=== PATIENT | female | born 2000 | race Two or more races ===

== ENCOUNTER 2024-11-20 20:31 | Inpatient (IN) | payer MEDICAID, SELFPAY ==
[2024-11-20 20:32] VITALS: BMI 20.3
[2024-11-20 21:45] VITALS: BP 94/56; PULSE 147; RESP 20; TEMP 37.8; O2SAT 97
--- NOTE | 2024-11-20 22:43 | PD.EDRME ---
Rapid Medical Screening Exam RME Arrival date/time: 11/20/24 20:31 Chief Complaint: Fever Time Seen by Provider: 11/20/24 21:13 Vital signs: Vital Signs Temperature 100.1 F 11/20/24 21:45 Pulse Rate 147 H 11/20/24 21:45 Respiratory Rate 20 11/20/24 21:45 Blood Pressure 94/56 L 11/20/24 21:45 Pulse Oximetry (%) 97 11/20/24 21:45 Oxygen Delivery Method Room Air 11/20/24 21:45 Vital signs reviewed by provider: Yes RME Narrative: 23-year-old female brought in by mom for evaluation of right flank pain x3 days. Patient's mom endorses persistent fever at home with max of 105F. Patient endorses nausea and vomiting and states she is unable to tolerate p.o. fluids. Denies dysuria, hematuria, diarrhea.
--- NOTE | 2024-11-20 22:44 | XR_ITS ---
Examination: CT abdomen and pelvis without contrast. Coronal 3-D reconstructions. Sagittal 2-D reconstructions. Date and time of exam:November 21, 2024 0134 hrs. Indications: Fever and flank pain beginning on the right side 4 days ago CTDI: vol (mGy): 7.73 DLP: (mGycm): 371 Technique: Axial images of the abdomen have been obtained, 3 mm slice thickness Intravenous contrast material has not been administered. Low dose protocols were performed. One or more of the following dose reduction techniques were used; automated exposure control, adjustment of the mA and/or KV according to patient size, use of iterative reconstruction technique. Findings: No focal liver or splenic lesions No pancreatic mass Edematous appearing right kidney on this noncontrast study The distal appendix is fluid-filled with mild wall thickening, the appearance should be clinically correlated No bowel obstruction Anteverted uterus No diverticulitis Urinary bladder intact Osseous structures intact Impression: Edematous right kidney consistent with right pyelonephritis The distal appendix is fluid-filled with mild wall thickening measuring 6 mm in thickness, without definite inflammatory change, the appearance should be clinically correlated
[2024-11-20] MEDS: SODIUM CHLORIDE 0.9% 500 ML 500 ML 999 ML IV (23:15)
[2024-11-20 23:36] LABS: Basophils # (Auto) 0.1 Thou/mm3 (0.0-0.2); Basophils % (Auto) 0 % (0-2.5); Eosinophils % (Auto) 0 % (0-10); Hematocrit 35.3 % (36.0-46.0); Hemoglobin 12.3 g/dL (12.0-16.0); Immature Granulocytes % (Auto) 2 % (0-0); Immature Granulocytes Auto 0.45 Thou/mm3 (0.00-0.00); Lymphocytes % (Auto) 3 % (10-50); Mean Corpuscular HGB Conc 34.8 g/dl (31.0-37.0); Mean Corpuscular Hemoglobin 29.2 pg (25.0-35.0); Mean Corpuscular Volume 84 fL (80-100); Monocytes # (Auto) 2.1 Thou/mm3 (0.0-0.8); Monocytes % (Auto) 7 % (0-12); Neutrophils # (Auto) 24.8 Thou/mm3 (1.8-7.7); Neutrophils % (Auto) 88 % (37-80); Nucleated Red Blood Cell % 0 /100 WBC (0); Platelet Count 176 Thou/mm3 (140-440); RDW Standard Deviation 38.1 fL (36.4-46.3); Red Blood Count 4.21 Miln/mm3 (4.00-5.20)
[2024-11-20 23:37] LABS: White Blood Count 28.4 Thou/mm3 (3.6-11.0)
[2024-11-20 23:58] LABS: Alanine Aminotransferase 20 U/L (10-49); Albumin, Serum 4.3 gm/dL (3.5-5.0); Albumin/Globulin Ratio 1.5 (1.2-2.2); Alkaline Phosphatase 74 U/L (46-116); Anion Gap 11 (7-16); Aspartate Amino Transferase 17 U/L (0-34); BUN/Creatinine Ratio 13 Ratio (12-20); Bilirubin,Total 0.9 mg/dL (0.3-1.2); Blood Urea Nitrogen 9 mg/dL (9-23); Calcium 9.3 mg/dL (8.3-10.6); Calcium (Corrected) 9.3 mg/dL (8.5-10.1); Carbon Dioxide 24.4 mMol/L (20.0-31.0); Chloride 103 mMol/L (98-107); Creatinine (Component) 0.7 mg/dL (0.6-1.3); Estimated Creatinine Clearance 125.6 mL/min (>60); Globulin 2.9 gm/dL (2.3-3.5); Glucose 108 mg/dL (74-106); Osmolality,Calculated 275 (275-295); Potassium 3.7 mMol/L (3.4-5.1); Sodium 138 mMol/L (136-145); Total Protein 7.2 gm/dL (5.7-8.2); eGFR > 60 See Note
[2024-11-21] VITALS (18 sets, daily range): BP systolic 104–128; BP diastolic 50–90; PULSE 88–132; RESP 16–98; TEMP 36.7–39.6; O2SAT 96–100; BMI 20.3
[2024-11-21 00:48] LABS: Collection Type, Urine Clean Catch
[2024-11-21 00:52] LABS: HCG Qualitative,Urine Negative
[2024-11-21 00:56] LABS: Bilirubin,Urine Negative (Negative); Blood,Urine 1+ (Negative); Clarity,Urine Turbid (Clear/Hazy); Color,Urine Yellow (Lt Yel-Yel); Glucose, Urine Negative (Negative); Ketones,Urine 3+ (Negative); Leukocyte Esterase,Urine Positive (Negative); Nitrite,Urine Positive (Negative); Protein,Urine 1+ (Neg - Trace); RBC,Urine 7 /hpf (0-3); Specific Gravity,Urine 1.021 (1.001-1.035); Squamous Epithelial Cell,Urine 1 /hpf (0-5); Urobilinogen,Urine Negative mg/dL (0.0-1.0); WBC,Urine 63 /hpf (0-5)
[2024-11-21 00:58] LABS: Culture Indicated,Urine Yes
--- NOTE | 2024-11-21 03:06 | PRELIM_ITS ---
CT scan of the abdomen and pelvis without intravenous contrast (axial sections with sagittal and coronal reformats) November 21, 2024 at 0134 hours Clinical History: Right flank pain and fever. Comparison: None. Findings: The lung bases are clear. The liver, pancreas, spleen, and adrenals are unremarkable on this noncontrast study. Gallbladder is large. No evidence of acute cholecystitis. Right perinephric fat stranding. No hydronephrosis. No kidney or ureteral stones. No evidence of bowel obstruction. Prominent distal appendix measuring up to 0.7 cm without peripheral fat stranding, no perforation, no collections. There is no mesenteric or retroperitoneal adenopathy. The urinary bladder is nondistended, limited evaluation. There is no free fluid or free air. The osseous structures are unremarkable. The uterus and ovaries are within normal limits. Impression: Probable right pyelonephritis. Prominent distal appendix, early acute appendicitis cannot be excluded. Discussion Details: Results verbally communicated to : Dr Lombardo at 02:51 AM 11/21/2024 Report Electronically Signed By: Jhonny Lang 11/21/2024 3:06:44 AM [EST]
[2024-11-21] MEDS: ONDANSETRON INJ 2 MG/ML INJ 2 ML 4 MG IV (03:21)
[2024-11-21] MEDS: PIPER/TAZO INJ 3.375 GM in SODIUM CHLORIDE 0.9% (Popper) 50 ML IV (03:22)
[2024-11-21 03:26] LABS: Lactate (Lactic Acid) 2.1 mMol/L (0.4-2.0)
--- NOTE | 2024-11-21 03:26 | PD.EDFEVER ---
ED Fever RME/HPI General Chief Complaint: Fever Stated Complaint: FEVER Time Seen by Provider: 11/20/24 21:13 Source: patient and family Arrival date/time: 11/20/24 20:31 Mode of arrival: ambulatory Limitations: no limitations RME / HPI RME / HPI Narrative: Dr. Gaytan?s Main ED Evaluation: 23-year-old female presents with right flank pain for 3 days, brought in by her mother due to worsening symptoms. Her mother reports persistent fever at home, peaking at 105?F. The patient also endorses nausea and vomiting, with an inability to tolerate oral fluids, raising mom's concern for dehydration. She denies dysuria, hematuria, or diarrhea. No recent sick contacts or travel history reported. Related Data Previous Rx's ?Medication ?Instructions ?Recorded Sulfamethoxazole/Trimethoprim DS * 1 tab PO BID #20 tabs 06/10/17 (BACTRIM DS *) metoclopramide HCl 10 mg tablet 10 mg PO Q6H PRN nausea and 08/04/22 (Reglan) vomiting #20 tabs Allergies Allergy/AdvReac Type Severity Reaction Status Date / Time No Known Allergies Allergy Verified 08/04/22 20:23 Review of Systems Review of Systems Systems Reviewed: All systems reviewed, normal except as documented Past Medical History Past Medical History NEUROLOGIC: Positive Seizures (Febrile Sx last one at age6 yrs old) CARDIAC: Negative Congestive Heart Failure RESPIRATORY: Negative Chronic Obstructive Pulmonary Disease (COPD) GENITOURINARY: Negative Renal Disease ENDOCRINE: Negative Diabetes Mellitus Type 1 or Diabetes Mellitus Type 2 Social History SMOKING STATUS: Never smoker Physical Exam General Limitations: no limitations General appearance: alert and in no apparent distress Head Head exam: atraumatic Eye Eye exam: Present normal appearance, PERRL and EOMI ENT ENT exam: Present normal exam, normal oropharynx and mucous membranes moist Neck Neck exam: Present normal inspection, full ROM and trachea midline Chest Chest inspection: Present normal inspection and symmetric chest wall rise Respiratory Respiratory exam: Present normal lung sounds bilaterally Cardiovascular Cardiovascular exam: Present regular rate, normal rhythm and normal heart sounds Abdominal Exam Abdominal exam: Present soft and normal bowel sounds; Absent distention, tenderness, guarding, Rovsing's sign or tenderness at McBurney's Point Abdominal tenderness: Absent RLQ Extremities Exam Extremities exam: Present normal inspection and full ROM Back Exam Back exam: Present normal inspection and full ROM Neurological Exam Neurological exam: Present alert, oriented X3 and CN II-XII intact Psychiatric Psychiatric exam: Present normal affect and normal mood Skin Skin exam: Present warm, dry, intact and normal color ED Exam General Limitations: Present no limitations General appearance: Present alert and in no apparent distress Head Head exam: Present atraumatic Eye Eye exam: Present normal appearance, PERRL and EOMI ENT ENT exam: Present normal exam, normal oropharynx and mucous membranes moist Neck Neck exam: Present normal inspection, full ROM and trachea midline Chest Chest inspection: Present normal inspection and symmetric chest wall rise Respiratory Respiratory exam: Present normal lung sounds bilaterally Cardiovascular Cardiovascular exam: Present regular rate, normal rhythm and normal heart sounds Abdominal Exam Abdominal exam: Present soft and normal bowel sounds; Absent distention, tenderness, guarding, Rovsing's sign or tenderness at McBurney's Point Abdominal tenderness: Absent RLQ Extremities Exam Extremities exam: Present normal inspection and full ROM Back Exam Back exam: Present normal inspection and full ROM Neurological Exam Neurological exam: Present alert, oriented X3 and CN II-XII intact Psychiatric Psychiatric exam: Present normal affect and normal mood Skin Skin exam: Present warm, dry, intact and normal color Course Course Course Narrative: 0245 Sepsis alert initiated. Orders made at this time are congruent with ED Adult Sepsis Order List. Re-evaluation is to be completed. 0315 Sepsis reassessment performed consisting of lab review, vitals, physical exam including auscultation of heart, lungs, and visual evaluation of capillary refills, mucosal membranes and extremities. Quality Measures Current suspected stage: sepsis Possible source: genitourinary Blood cultures ordered: yes Antibiotic ordered: Yes Pertinent labs: 11/21/24 03:10 Lactic Acid 2.1 H mMol/L (0.4-2.0) Procalcitonin 3.99 H ng/ml (0.0-0.49) sepsis and none Orders Category Date Time Status Continuous Pulse Oximetry STAT Care 11/21/24 03:03 Completed EKG (ED ONLY) *Do not use* NOW Care 11/21/24 03:03 Completed In and Out Catheter X1PRN Care 11/21/24 03:03 Completed Insert IV NOW Care 11/20/24 22:44 Active NPO STAT Care 11/21/24 03:03 Active Strict Intake and Output Routine Care 11/21/24 03:[address] abdomen pelvis wo con Stat Exams 11/20/24 22:44 Taken EKG (ED Only) Stat Exams 11/21/24 03:03 Ordered XR chest 1V portable Stat Exams 11/21/24 03:50 Taken B-Type Natriuretic Peptide Stat Lab 11/21/24 03:10 Completed Blood Culture (Lab) Stat Lab 11/21/24 03:10 Received CBC Stat Lab 11/20/24 23:09 Completed CMP [Comprehensive Metabolic Panel] Stat Lab 11/20/24 23:09 Completed Drug Screen,Urine Stat Lab 11/21/24 00:37 Completed HCG Qualitative,Urine Stat Lab 11/21/24 00:37 Completed LDH (Lactate Dehydrogenase) Stat Lab 11/21/24 03:10 Completed Lactate (Lactic Acid) Stat Lab 11/21/24 03:10 Results Lipase Stat Lab 11/21/24 03:10 Completed Magnesium Stat Lab 11/21/24 03:10 Completed Partial Thromboplastin Time Stat Lab 11/21/24 03:10 Completed Path Review Blood Smear Stat Lab 11/20/24 23:09 Completed Phosphorous Stat Lab 11/21/24 03:10 Completed Procalcitonin Stat Lab 11/21/24 03:10 Completed Prothrombin Time with INR Stat Lab 11/21/24 03:10 Completed UA, C/S IF [Urinalysis, C/S if Indicated] Stat Lab 11/21/24 00:37 Completed Urinalysis Stat Lab 11/21/24 03:03 Ordered Urine Culture Stat Lab 11/21/24 00:37 Received Urine Culture Stat Lab 11/21/24 03:03 Ordered Acetaminophen Ivpb [Ofirmev Inj] Med 11/21/24 03:30 Discontinued 1,000 mg in 100 ml IV X1 Doxycycline Inj [Vibramycin Inj] 100 mg Med 11/21/24 03:29 Discontinued Sodium Chloride 0.9% (Pop) [NS 0.9% mini bag] 100 ml IV X1 Ketorolac Inj [Toradol Inj] Med 11/21/24 03:30 Discontinued 30 mg IVP X1 ONE Ondansetron Inj [Zofran Inj] Med 11/21/24 02:29 Discontinued 4 mg IV X1 ONE Piper/Tazo Inj [Zosyn Inj] 3.375 gm Med 11/21/24 03:15 Discontinued SODIUM CHLORIDE 0.9% (Popper) [Ns 0.9% (P)] 50 ml IV X1 Sodium Chloride 0.9% 1000 ml [Ns] 1,000 ml Med 11/21/24 03:50 Discontinued IV 999 mls/hr Sodium Chloride 0.9% 500 ml [Ns] 500 ml Med 11/20/24 22:44 Discontinued IV 999 mls/hr Sodium Chloride 0.9% 500 ml [Ns] 500 ml Med 11/21/24 03:50 Discontinued IV 999 mls/hr Oxygen Delivery NOW RT 11/21/24 03:03 Active Vital Signs Vital signs: Vital Signs Temperature 100.1 F 11/20/24 21:45 Pulse Rate 147 H 11/20/24 21:45 Respiratory Rate 20 11/20/24 21:45 Blood Pressure 94/56 L 11/20/24 21:45 Pulse Oximetry (%) 97 11/20/24 21:45 Oxygen Delivery Method Room Air 11/20/24 21:45 Procedures -ED Procedure Comment EKG taken at 0320: Sinus tachycardia at 117 bpm, normal axis, no ectopy, right bundle branch block (RBBB), with no evidence of acute ischemia, according to my interpretation. Fever MDM Narrative MDM Narrative:: Scribe Attestation: I, Frantz Falcon, am scribing for and in the presence of Dr. Gaytan. Provider Notation: Although this document has been carefully reviewed, there may still be some phonetic and other typographical errors. These errors are purely grammatical due to imperfections in the software program and should not be construed in any way to compromise the substance of the patient's medical care during this visit. Patient data External records reviewed:: [facility] previous records Clinical information provided by:: patient, family and parent Social determinants that could affect healthcare access:: none Patient has the following chronic illnesses:: see PMH How is presenting disease/condition affected by chronic disease/condition?: uneffected by Evaluation data The following diagnostics were reviewed and interpreted by me:: lab results, radiology exam(s) and EKG tracing(s) Lab and/or radiology exams considered but not ordered:: na Interpretation Summary: CT scan of the abdomen and pelvis without intravenous contrast (axial sections with sagittal and coronal reformats) November 21, 2024 at 0134 hours Clinical History: Right flank pain and fever. Comparison: None. Findings: The lung bases are clear. The liver, pancreas, spleen, and adrenals are unremarkable on this noncontrast study. Gallbladder is large. No evidence of acute cholecystitis. Right perinephric fat stranding. No hydronephrosis. No kidney or ureteral stones. No evidence of bowel obstruction. Prominent distal appendix measuring up to 0.7 cm without peripheral fat stranding, no perforation, no collections. There is no mesenteric or retroperitoneal adenopathy. The urinary bladder is nondistended, limited evaluation. There is no free fluid or free air. The osseous structures are unremarkable. The uterus and ovaries are within normal limits. Impression: Probable right pyelonephritis. Prominent distal appendix, early acute appendicitis cannot be excluded. Discussion Details: Results verbally communicated to : Dr Lombardo at 02:51 AM 11/21/2024 Report Electronically Signed By: Jhonny Lang 11/21/2024 3:06:44 AM [EST] Medications / Prescriptions Medications or Prescriptions considered but not ordered:: na Medication administrations:: Medication Administration History Acetaminophen (Acetaminophen 325 Mg Tablet) 650 mg PO Q6H PRN PRN Reason: Fever >101.5 Stop: 12/21/24 04:33 Hydromorphone HCl (Hydromorphone Inj 2 Mg/Ml Vial) 0.25 mg IVP Q2H PRN PRN Reason: Pain 7-10 Stop: 11/26/24 04:33 Sodium Chloride (Ns) 1,000 mls @ 75 mls/hr IV .[id number] [facility] [place] Stop: 12/21/24 04:44 Last Admin: 11/21/24 05:18 Dose: 75 mls/hr Documented By: CCT Ceftriaxone Sodium 1,000 mg/ (Sodium Chloride) 50 mls @ 100 mls/hr IV QDAY [facility] [place] Stop: 11/28/24 08:59 Ondansetron HCl (Ondansetron Inj 2 Mg/Ml Inj 2 Ml) 4 mg IV Q6H PRN; Protocol PRN Reason: NAUSEA OR VOMITING Stop: 12/21/24 04:33 Oxycodone/Acetaminophen (Oxycodone/Apap 5/325 Tablet) 1 tab PO Q6H PRN PRN Reason: PAIN SCALE 4-6 (Moderate Stop: 11/26/24 04:33 Discontinued Medications Sodium Chloride (Ns) 500 mls @ 999 mls/hr IV .Q31M ONE Stop: 11/20/24 23:14 Last Infusion: 11/21/24 03:23 Dose: Infused Documented By: Admin: 11/20/24 23:15 Dose: 999 mls/hr Documented By: MP Piperacillin Sod/Tazobactam (Sod 3.375 gm/ Sodium Chloride) 50 mls @ 100 mls/hr IV X1 ONE Stop: 11/21/24 03:44 Last Infusion: 11/21/24 04:00 Dose: Infused Documented By: Admin: 11/21/24 03:22 Dose: 100 mls/hr Documented By: CB Doxycycline Hyclate 100 mg/ (Sodium Chloride) 100 mls @ 100 mls/hr IV X1 ONE Stop: 11/21/24 04:28 Last Infusion: 11/21/24 05:12 Dose: Infused Documented By: Admin: 11/21/24 04:04 Dose: 100 mls/hr Documented By: CCT Acetaminophen (Ofirmev Inj) 1,000 mg in 100 mls @ 250 mls/hr IV X1 ONE Stop: 11/21/24 03:53 Last Infusion: 11/21/24 04:54 Dose: Infused Documented By: Admin: 11/21/24 04:04 Dose: 250 mls/hr Documented By: CCT Sodium Chloride (Ns) 1,000 mls @ 999 mls/hr IV .Q1H1M ONE Stop: 11/21/24 04:50 Last Admin: 11/21/24 04:04 Dose: 999 mls/hr Documented By: CCT Sodium Chloride (Ns) 500 mls @ 999 mls/hr IV .Q31M ONE Stop: 11/21/24 04:20 Last Admin: 11/21/24 05:17 Dose: 999 mls/hr Documented By: CCT Ketorolac Tromethamine (Ketorolac Inj 30 Mg/Ml Vial) 30 mg IVP X1 ONE Stop: 11/21/24 03:31 Last Admin: 11/21/24 03:46 Dose: 30 mg Documented By: CB Ondansetron HCl (Ondansetron Inj 2 Mg/Ml Inj 2 Ml) 4 mg IV X1 ONE; Protocol Stop: 11/21/24 02:30 Last Admin: 11/21/24 03:21 Dose: 4 mg Documented By: CB as above Consultations Consultation(s) initiated? (list below): Yes Consultation #1 (Physician, Specialty, Details): Hospitalist was made aware of the patient?s HPI, PMHx, lab and/or radiology results. Discussed treatment plan. Accepts patient for admission. Diagnosis Fever Differential Diagnosis: other (Sepsis with cellulitis, intra-abdominal infection, pneumonia (PNA), and urinary tract infection (UTI).) Most likely diagnosis given after review of the tests above:: Severe sepsis, Pyelonephritis, UTI (urinary tract infection) Admission Indicated Admission indicated?: indicated Admission Request Was there a request for admission?: Yes Admission Attestation Admission request attestation: Discussed case with [] from Hospitalist service regarding admission. Discussed patients ED course, exam findings, labs, and radiology results. The Hospitalist [agrees,declines] to accept the patient for admission. Disposition Plan Disposition Plan: Admit Critical Care Time Critical Care Time Critical Care Time: Yes Total Critical Care Time (min.): 35 Attestation: The high probability of sudden, clinically significant deterioration in the patient?s condition required the highest level of my preparedness to intervene urgently. ? The services I provided to this patient were to treat and/or prevent clinically significant deterioration. Services included the following: chart data review, reviewing nursing notes and/or old charts, documentation time, environmental consultant collaboration regarding findings and treatment options, medication orders and management, direct patient care, vital sign assessments and ordering, interpreting and reviewing diagnostic studies and lab tests. ? Aggregate critical care time includes only time during which I was engaged in work directly related to the patient?s care, as described above, whether at bedside or elsewhere in the Emergency Department. It did not include time spent performing other reported procedures or the services of residents, students, nurses or physician assistants. Discharge Plan Plan Patient Disposition: Admit Acute Care w/in Hospital Problem List Clinical Impression: Severe sepsis, Pyelonephritis, UTI (urinary tract infection)
[2024-11-21 03:39] LABS: Amphetamine/Methamp Scrn,U Negative (Negative); Barbiturate Screen,Urine Negative (Negative); Benzodiazepines Screen,Urine Negative (Negative); Benzoylecgonine Screen, Ur Negative (Negative); Fentanyl Screen,Urine Negative (Negative); Opiate Screen,Urine Negative (Negative); THC Screen,Urine Negative (Negative)
[2024-11-21 03:45] LABS: INR 1.2 (0.9-1.3); Partial Thromboplastin Time 29.6 Seconds (22.0-36.0); Prothrombin Time 12.8 Seconds (9.0-12.2)
[2024-11-21] MEDS: KETOROLAC INJ 30 MG/ML VIAL IVP (03:46)
--- NOTE | 2024-11-21 03:50 | XR_ITS ---
Examination: AP chest single view TECHNIQUE: AP portable upright chest single view Exam date and time: November 21, 2024 0249 hours INDICATIONS: Sepsis today FINDINGS: Normal heart size No lobar pneumonia The osseous structures are intact IMPRESSION: No lobar pneumonia
[2024-11-21 03:51] LABS: B-Type Natriuretic Peptide 102 pg/mL (0-100)
[2024-11-21 03:59] LABS: Path Review Blood Smear Sent to Pathologist
[2024-11-21] MEDS: DOXYCYCLINE INJ 100 MG in SODIUM CHLORIDE 0.9% (POP) 100 ML IV (04:04)
[2024-11-21] MEDS: ACETAMINOPHEN IVPB 1,000 MG/100 ML VIAL 250 MG IV (04:04)
[2024-11-21] MEDS: SODIUM CHLORIDE 0.9% 1000 ML 1,000 ML 999 ML IV (04:04)
[2024-11-21 04:05] LABS: LDH (Lactate Dehydrogenase) 134 U/L (120-246); Lipase 23 U/L (12-53); Magnesium 1.7 mg/dL (1.6-2.6); Phosphorous 3.6 mg/dL (2.4-5.1); Procalcitonin 3.99 ng/ml (0.0-0.49)
[2024-11-21] MEDS: SODIUM CHLORIDE 0.9% 500 ML 500 ML 999 ML IV (05:17)
[2024-11-21] MEDS: SODIUM CHLORIDE 0.9% 1000 ML 1,000 ML 75 ML IV ×2 (05:18→19:42)
--- NOTE | 2024-11-21 05:47 | ESHP_ITS ---
<Statement entered by Talon Randall MD - 11/22/24 23:38> 23-year-old female with no past medical history presented to the ER with complaints of fevers and back pain. Patient states it has been having fevers and back pain that has been going on for the past 2 days with associated generalized weakness. In the ER, patient was noted to be septic secondary to pyelonephritis however no endorgan damage as of now however will monitor and admit the patient. Plan to continue IV antibiotic therapy and obtain blood cultures. I reviewed above note and agree with findings and plans. I have also personally examined the patient with medicine team and went over assessment and plan with medical team including audit practice intern and resident physician. Documentation for date of: 11/21/24 HPI History of Present Illness Chief complaint: Fever and back pain for 2 days before admission History of present illness: HPI: A 23-year-old female patient with no past medical history presented to the ED due to history of fever and back pain for the past 2 days. 3 days before admission patient started to feel generalized body ache and weakness and back pain. However she started to improve later on during the day. The next day patient was nauseous and had 3 episodes of vomiting, and she started to have right-sided back pain. Her generalized weakness and body ache continue to worsen to the next day when she started to spike fever and chills. Patient reported that her urine was dark yellow and was offensive. Denied any history of kidney stones, however she mentioned that she has only 1 episode of UTI in the past year. Patient denied any vaginal discharge, diarrhea or constipation. Home medications: None ED course:On presentation patient was febrile and severely tachycardic with heart rate of 147 and body temperature of 103.3, blood pressure was 94/56 she was given 2 L of IV fluids in the ED which improved her blood pressure to 112/56. Labs showed WBCs of 28.4, hemoglobin of 12.3 lactic acid was 2.1, procalcitonin 3.99, urinalysis showed WBC of 66, however other labs within normal limits CT scan showed right-sided pyelonephritis, however the radiologist mentioned that acute appendicitis cannot be ruled out. Clinically on examination patient did not have any abdominal tenderness or rigidity, and no rebound tenderness. Patient was started on Zosyn and doxycycline by the ED doctor. PMH: None Social hx: Alcohol: Denied Tobacco: Denied Illicit drugs: Denied Allergies: No known allergies Review of Systems Review of Systems Systems Reviewed: All systems reviewed, normal except as documented Exam Vital Signs Temp Pulse Resp BP Pulse Ox O2 Del Method 99.2 F 107 H 20 113/50 L 98 Room Air 11/21/24 04:56 11/21/24 04:56 11/21/24 04:56 11/21/24 04:56 11/21/24 04:56 11/21/24 04:56 Narrative Exam GEN: AOx3, patient looks flushed and febrile, however she is lying in bed comfortably, talkative and responsive. HEENT: NC/AC, PERRLA, oral mucosa moist, neck supple CVS: RRR, S1-S2 present, no murmurs appreciated RESP: CTAB GI: soft,non distended, negative CVA, non tender and no rebound tenderness, NBS MSK: able to move all 4 limbs, no lower extremity edema SKIN: warm and dry [employer]HICLE: CN II-XII and Sensation grossly intact. Results: Labs 11/20/24 23:09 11/20/24 23:09 Labs: Short CBC 11/20/24 Range/Units 23:09 WBC 28.4 H (3.6-11.0) Thou/mm3 Hgb 12.3 (12.0-16.0) g/dL Hct 35.3 L (36.0-46.0) % Plt Count 176 (140-440) Thou/mm3 BMP 11/20/24 23:09 Sodium 138 Potassium 3.7 Chloride 103 Carbon Dioxide 24.4 BUN 9 Creatinine 0.7 Glucose 108 H Calcium 9.3 Liver Function 11/20/24 Range/Units 23:09 Total Bilirubin 0.9 (0.3-1.2) mg/dL AST 17 (0-34) U/L ALT 20 (10-49) U/L Alkaline Phosphatase 74 (46-116) U/L Albumin 4.3 (3.5-5.0) gm/dL Urine 11/21/24 Range/Units 00:37 Urine Color Yellow (Lt Yel-Yel) Urine Clarity Turbid A (Clear/Hazy) Urine pH 6.0 (5.0-7.0) Ur Specific [place] 1.021 (1.001-1.035) Urine Protein 1+ A (Neg - Trace) Urine Glucose (UA) Negative (Negative) Quality Measures Quality Measures sepsis Current suspected stage: sepsis Possible source: genitourinary Blood cultures ordered: yes Antibiotic ordered: Yes and none Medications Home Medications and Allergies Allergies Allergy/AdvReac Type Severity Reaction Status Date / Time No Known Allergies Allergy Verified 08/04/22 20:23 Visit Medications Acetaminophen (Acetaminophen 325 Mg Tablet) 650 mg PO Q6H PRN PRN Reason: Fever >101.5 Stop: 12/21/24 04:33 Hydromorphone HCl (Hydromorphone Inj 2 Mg/Ml Vial) 0.25 mg IVP Q2H PRN PRN Reason: Pain 7-10 Stop: 11/26/24 04:33 Sodium Chloride (Ns) 1,000 mls @ 75 mls/hr IV .[id number] [facility] Stop: 12/21/24 04:44 Last Admin: 11/21/24 05:18 Dose: 75 mls/hr Ceftriaxone Sodium 1,000 mg/ (Sodium Chloride) 50 mls @ 100 mls/hr IV QDAY [facility] Stop: 11/28/24 08:59 Ondansetron HCl (Ondansetron Inj 2 Mg/Ml Inj 2 Ml) 4 mg IV Q6H PRN; Protocol PRN Reason: NAUSEA OR VOMITING Stop: 12/21/24 04:33 Oxycodone/Acetaminophen (Oxycodone/Apap 5/325 Tablet) 1 tab PO Q6H PRN PRN Reason: PAIN SCALE 4-6 (Moderate Stop: 11/26/24 04:33 Discontinued Medications Sodium Chloride (Ns) 500 mls @ 999 mls/hr IV .Q31M ONE Stop: 11/20/24 23:14 Last Infusion: 11/21/24 03:23 Dose: Infused Piperacillin Sod/Tazobactam (Sod 3.375 gm/ Sodium Chloride) 50 mls @ 100 mls/hr IV X1 ONE Stop: 11/21/24 03:44 Last Infusion: 11/21/24 04:00 Dose: Infused Doxycycline Hyclate 100 mg/ (Sodium Chloride) 100 mls @ 100 mls/hr IV X1 ONE Stop: 11/21/24 04:28 Last Infusion: 11/21/24 05:12 Dose: Infused Acetaminophen (Ofirmev Inj) 1,000 mg in 100 mls @ 250 mls/hr IV X1 ONE Stop: 11/21/24 03:53 Last Infusion: 11/21/24 04:54 Dose: Infused Sodium Chloride (Ns) 1,000 mls @ 999 mls/hr IV .Q1H1M ONE Stop: 11/21/24 04:50 Last Admin: 11/21/24 04:04 Dose: 999 mls/hr Sodium Chloride (Ns) 500 mls @ 999 mls/hr IV .Q31M ONE Stop: 11/21/24 04:20 Last Admin: 11/21/24 05:17 Dose: 999 mls/hr Ketorolac Tromethamine (Ketorolac Inj 30 Mg/Ml Vial) 30 mg IVP X1 ONE Stop: 11/21/24 03:31 Last Admin: 11/21/24 03:46 Dose: 30 mg Ondansetron HCl (Ondansetron Inj 2 Mg/Ml Inj 2 Ml) 4 mg IV X1 ONE; Protocol Stop: 11/21/24 02:30 Last Admin: 11/21/24 03:21 Dose: 4 mg Assessment & Plan Plan Summary:A 23-year-old female patient with no past medical history presented to the ED due to history of fever and back pain for the past 2 days. 3 days before admission patient started to feel generalized body ache and weakness and back pain. However she started to improve later on during the day. Patient was admitted for management of sepsis secondary to pyelonephritis. #Sepsis rule out secondary to pyelonephritis #Right sided pyelonephritis On presentation patient was febrile and severely tachycardic with heart rate of 147 and body temperature of 103.3, blood pressure was 94/56 she was given 2 L of IV fluids in the ED which improved her blood pressure to 112/56. Labs showed WBCs of 28.4, hemoglobin of 12.3 lactic acid was 2.1, procalcitonin 3.99, urinalysis showed WBC of 66, however other labs within normal limits CT scan showed right-sided pyelonephritis, however the radiologist mentioned that acute appendicitis cannot be ruled out. Clinically on examination patient did not have any abdominal tenderness or rigidity, and no rebound tenderness. Patient was started on Zosyn and doxycycline by the ED doctor. Plan ? Admit to [facility] ? Start the patient on IV fluid maintenance 75 mL/h ? Start the patient on ceftriaxone 1 g daily ? Follow-up on the urine and blood cultures and sensitivity results ? Acetaminophen for fever ? Start cooling measures ? Zofran IV every 6 hours as needed Hospital Maintenance: FEN: Regular diet DVT ppx: Not indicated GI ppx: Not indicated IV lines: PIV Allen: None Code status: Full code Dispo: MedSurg - Patient's plan and care discussed with my attending, Dr. Tonia Pope MD Internal Medicine PGY-2
[2024-11-21 05:55] LABS: Basophils # (Auto) 0.1 Thou/mm3 (0.0-0.2); Basophils % (Auto) 0 % (0-2.5); Eosinophils % (Auto) 0 % (0-10); Hematocrit 26.7 % (36.0-46.0); Hemoglobin 9.3 g/dL (12.0-16.0); Immature Granulocytes % (Auto) 2 % (0-0); Immature Granulocytes Auto 0.37 Thou/mm3 (0.00-0.00); Lymphocytes # (Auto) 1.2 Thou/mm3 (1.0-4.8); Lymphocytes % (Auto) 5 % (10-50); Mean Corpuscular HGB Conc 34.8 g/dl (31.0-37.0); Mean Corpuscular Hemoglobin 29.6 pg (25.0-35.0); Mean Corpuscular Volume 85 fL (80-100); Monocytes # (Auto) 1.9 Thou/mm3 (0.0-0.8); Monocytes % (Auto) 8 % (0-12); Neutrophils # (Auto) 19.7 Thou/mm3 (1.8-7.7); Neutrophils % (Auto) 85 % (37-80); Nucleated Red Blood Cell % 0 /100 WBC (0); Platelet Count 136 Thou/mm3 (140-440); RDW Standard Deviation 38.5 fL (36.4-46.3); Red Blood Count 3.14 Miln/mm3 (4.00-5.20)
[2024-11-21 05:59] LABS: White Blood Count 23.2 Thou/mm3 (3.6-11.0)
[2024-11-21 06:22] LABS: Reflex Lactate? Y
[2024-11-21 06:25] LABS: Alanine Aminotransferase 12 U/L (10-49); Albumin/Globulin Ratio 1.4 (1.2-2.2); Alkaline Phosphatase 53 U/L (46-116); Anion Gap 10 (7-16); Aspartate Amino Transferase 12 U/L (0-34); BUN/Creatinine Ratio 13 Ratio (12-20); Bilirubin,Total 0.8 mg/dL (0.3-1.2); Blood Urea Nitrogen 8 mg/dL (9-23); Calcium 7.3 mg/dL (8.3-10.6); Calcium (Corrected) 8.1 mg/dL (8.5-10.1); Carbon Dioxide 21.2 mMol/L (20.0-31.0); Chloride 105 mMol/L (98-107); Creatinine (Component) 0.6 mg/dL (0.6-1.3); Estimated Creatinine Clearance 146.6 mL/min (>60); Globulin 2.2 gm/dL (2.3-3.5); Glucose 114 mg/dL (74-106); Magnesium 1.5 mg/dL (1.6-2.6); Osmolality,Calculated 271 (275-295); Sodium 136 mMol/L (136-145); Total Protein 5.2 gm/dL (5.7-8.2); eGFR > 60 See Note
--- NOTE | 2024-11-21 07:23 | PC.NURSE ---
Received report and assumed care of patient. Patient states pain 9/10 and ambulated to restroom.
[2024-11-21] MEDS: HYDROmorphone INJ 2 MG/ML VIAL 0.25 MG IVP ×3 (07:44→12:39)
[2024-11-21 08:09] LABS: Lactic Acid, 3 HR 1.1 mMol/L (0.4-2.0)
[2024-11-21] MEDS: cefTRIAXone 1,000 MG in SODIUM CHLORIDE 0.9% (Popper) 50 ML 100 MG IV (09:34)
[2024-11-21] MEDS: Magnesium Sulfate 4 GM Ivpb 4 GM/50 ML BAG IV (10:36)
[2024-11-21] MEDS: CALCIUM CARBONATE 600 MG TABLET PO (10:37)
[2024-11-21] MEDS: POTASSIUM CHLORIDE 20 mEq TABCR 40 MEQ PO (11:56)
[2024-11-21] MEDS: ACETAMINOPHEN 325 MG TABLET 650 MG PO ×2 (12:38→18:35)
--- NOTE | 2024-11-21 13:38 | ESPR_ITS ---
<Statement entered by Harper Fontenot MD - 11/21/24 15:09> I discussed with and supervised the internet sales director physician who took care of this patient. I personally saw and examined the patient and discussed the assessment and plan with the entire medicine team, including my attending Dr. Lynch, I agree with most of the assessment and plan as documented below Harper Fontenot M.D. PGY-2 Documentation for date of: 11/21/24 Subjective Subjective Interval history: No overnight events. Patient seen examined at bedside, appears in mild distress. Patient endorses headache and fevers, mildly uncomfortable. Reports significant subjective improvement, denies nausea, vomiting, shortness of breath, chest pain, abdominal pain, dysuria. Continue IV antibiotics, follow-up pending cultures. Exam Vital Signs Temp Pulse Resp BP Pulse Ox O2 Del Method 103.0 F H 132 H 16 116/90 H 97 Room Air 11/21/24 12:38 11/21/24 12:30 11/21/24 12:30 11/21/24 12:30 11/21/24 12:30 11/21/24 12:30 Narrative Exam PE: Gen: Well-developed and well-nourished. Mild distress. HEENT: NCAT, PERRLA, EOMI, MMM, anicteric conjunctivae. CVS: normal S1 and S2. RRR. No M/R/G. Resp: CTA B/L. No rhonchi, rales, crackles or wheezing. Abd: soft, non-tender, non-distended. MSK: Good ROM in BUE & BLE. No edema or rash. Neuro: CN II-XII grossly intact. Strength 5/5 in BUE & BLE. Alert and oriented x3. Psych: appropriate mood and affect. Objective Labs 11/21/24 05:29 11/21/24 05:29 Labs: Laboratory Results - last 24 hr 11/20/24 11/21/24 11/21/24 23:09 00:37 03:10 WBC 28.4 H RBC 4.21 Hgb 12.3 Hct 35.3 L MCV 84 MCH 29.2 MCHC 34.8 RDW Std Deviation 38.1 Plt Count 176 Neut % (Auto) 88 H Lymph % (Auto) 3 L [place] % (Auto) 7 Eos % (Auto) 0 Baso % (Auto) 0 Neut # (Auto) 24.8 H Lymph # (Auto) 1.0 [place] # (Auto) 2.1 H Eos # (Auto) 0.0 Baso # (Auto) 0.1 Immature Gran # (Auto) 0.45 H Absolute Nucleated RBC 0.00 Immature Gran % 2 H Nucleated RBC % 0 Smear Path Review Sent to Pathologist PT 12.8 H INR 1.2 APTT 29.6 Sodium 138 Potassium 3.7 Chloride 103 Carbon Dioxide 24.4 Anion Gap 11 BUN 9 Creatinine 0.7 Estim Creat Clear Calc 125.6 eGFR > 60 BUN/Creatinine Ratio 13 Glucose 108 H Calculated Osmolality 275 Lactic Acid 2.1 H Calcium 9.3 Corrected Calcium 9.3 Phosphorus 3.6 Magnesium 1.7 Total Bilirubin 0.9 AST 17 ALT 20 Alkaline Phosphatase 74 Lactate Dehydrogenase 134 B-Natriuretic Peptide 102 H Total Protein 7.2 Albumin 4.3 Globulin 2.9 Albumin/Globulin Ratio 1.5 Lipase 23 Procalcitonin 3.99 H Ur Collection Type Clean Catch Urine Color Yellow Urine Clarity Turbid A Urine pH 6.0 Ur Specific [place] 1.021 Urine Protein 1+ A Urine Glucose (UA) Negative Urine Ketones 3+ A Urine Blood 1+ A Urine Nitrite Positive Urine Bilirubin Negative Urine Urobilinogen (Auto) Negative Ur Leukocyte Esterase Positive Urine RBC 7 H Urine WBC 63 H Ur Squamous Epith Cells 1 Urine Bacteria None Ur Culture Indicated? Yes Urine HCG, Qual Negative Urine Opiates Screen Negative Urine Fentanyl Screen Negative Ur Barbiturates Screen Negative U Amphetamin/Meth Scrn Negative U Benzodiazepines Scrn Negative U Cocaine Metab Screen Negative U Marijuana (THC) Screen Negative 11/21/24 11/21/24 05:29 08:04 WBC 23.2 H D RBC 3.14 L Hgb 9.3 L D Hct 26.7 L MCV 85 MCH 29.6 MCHC 34.8 RDW Std Deviation 38.5 Plt Count 136 L D Neut % (Auto) 85 H Lymph % (Auto) 5 L [place] % (Auto) 8 Eos % (Auto) 0 Baso % (Auto) 0 Neut # (Auto) 19.7 H Lymph # (Auto) 1.2 [place] # (Auto) 1.9 H Eos # (Auto) 0.0 Baso # (Auto) 0.1 Immature Gran # (Auto) 0.37 H Absolute Nucleated RBC 0.00 Immature Gran % 2 H Nucleated RBC % 0 Smear Path Review PT INR APTT Sodium 136 Potassium 3.0 L D Chloride 105 Carbon Dioxide 21.2 Anion Gap 10 BUN 8 L Creatinine 0.6 Estim Creat Clear Calc 146.6 eGFR > 60 BUN/Creatinine Ratio 13 Glucose 114 H Calculated Osmolality 271 L Lactic Acid 1.1 Calcium 7.3 L D Corrected Calcium 8.1 L Phosphorus Magnesium 1.5 L Total Bilirubin 0.8 AST 12 ALT 12 Alkaline Phosphatase 53 D Lactate Dehydrogenase B-Natriuretic Peptide Total Protein 5.2 L Albumin 3.0 L D Globulin 2.2 L Albumin/Globulin Ratio 1.4 Lipase Procalcitonin Ur Collection Type Urine Color Urine Clarity Urine pH Ur Specific [place] Urine Protein Urine Glucose (UA) Urine Ketones Urine Blood Urine Nitrite Urine Bilirubin Urine Urobilinogen (Auto) Ur Leukocyte Esterase Urine RBC Urine WBC Ur Squamous Epith Cells Urine Bacteria Ur Culture Indicated? Urine HCG, Qual Urine Opiates Screen Urine Fentanyl Screen Ur Barbiturates Screen U Amphetamin/Meth Scrn U Benzodiazepines Scrn U Cocaine Metab Screen U Marijuana (THC) Screen Quality Measures Quality Measures sepsis Current suspected stage: sepsis Possible source: genitourinary Blood cultures ordered: yes Antibiotic ordered: Yes and none Assessment & Plan Assessment Current Active Medications: Generic Name Dose Route Start Last Admin Trade Name Freq PRN Reason Stop Dose Admin Acetaminophen 650 mg 11/21/24 04:34 11/21/24 12:38 Acetaminophen 325 Mg Tablet PO 12/21/24 04:33 650 mg Q6H PRN Administration Fever >101.5 Hydromorphone HCl 0.25 mg 11/21/24 04:34 11/21/24 12:39 Hydromorphone Inj 2 Mg/Ml Vial IVP 11/26/24 04:33 0.25 mg Q2H PRN Administration Pain 7-10 Sodium Chloride 1,000 mls @ 75 mls/hr 11/21/24 04:45 11/21/24 05:18 Ns IV 12/21/24 04:44 75 mls/hr .[id number] JERSON Administration Ceftriaxone Sodium 1,000 mg/ 50 mls @ 100 mls/hr 11/21/24 09:00 11/21/24 10:04 Sodium Chloride IV 11/28/24 08:59 Infused QDAY JERSON Infusion Ondansetron HCl 4 mg 11/21/24 04:34 Ondansetron Inj 2 Mg/Ml Inj 2 Ml IV 12/21/24 04:33 Q6H PRN NAUSEA OR VOMITING Protocol Oxycodone/Acetaminophen 1 tab 11/21/24 04:34 Oxycodone/Apap 5/325 Tablet PO 11/26/24 04:33 Q6H PRN PAIN SCALE 4-6 (Moderate Plan 23-year-old female patient with no past medical history presented to the ED due to history of fever and back pain for the past 2 days. 3 days before admission patient started to feel generalized body ache and weakness and back pain. However she started to improve later on during the day. Patient was admitted for management of sepsis secondary to pyelonephritis. #Sepsis secondary to pyelonephritis #Right sided pyelonephritis On presentation patient was febrile and severely tachycardic with heart rate of 147 and body temperature of 103.3, blood pressure was 94/56 she was given 2 L of IV fluids in the ED which improved her blood pressure to 112/56. Labs showed WBCs of 28.4, hemoglobin of 12.3 lactic acid was 2.1, procalcitonin 3.99, urinalysis showed WBC of 66. CT scan showed right-sided pyelonephritis, however the radiologist mentioned that acute appendicitis cannot be ruled out. Clinically on examination patient did not have any abdominal tenderness or rigidity, and no rebound tenderness, but did have right-sided CVA tenderness. Patient was started on Zosyn and doxycycline by the ED doctor. Patient reports significant subjective improvement in symptoms. -Start the patient on IV fluid maintenance 75 mL/h -Ceftriaxone 1 g IV daily (started 11/21) -Follow-up on the urine and blood cultures and sensitivity results -Acetaminophen for fever -Start cooling measures -Zofran IV every 6 hours as needed DVT ppx: Not indicated GI ppx: Not indicated Diet: Regular IV lines: PIV Code status: Full code Plan of care discussed with senior resident Dr. Fontenot PGY?[address] Lynch. Brodie Rao MD PGY?1 Attending Provider Attestation/Addendum I attest that I was physically present for the evaluation, physical examination, lab and imaging review of the patient with the residents. I discussed the case with the residents and agree with the findings and plans of care as documented above. At bedside today, patient is states she is feeling much better. Her back pain has improved significantly. Denies any new complaints. Her last fever was overnight. WBC is downtrending slowly. Continues to be on IV Rocephin. Pending culture results. Yvette Lynch MD
[2024-11-21] MEDS: oxyCODONE/APAP 5/325 TABLET 1 TAB PO (20:14)
[2024-11-22] VITALS (18 sets, daily range): BP systolic 114–145; BP diastolic 60–85; PULSE 84–133; RESP 16–99; TEMP 36.5–39.3; O2SAT 93–100
[2024-11-22] MEDS: ACETAMINOPHEN 325 MG TABLET 650 MG PO ×2 (01:39→19:50)
[2024-11-22] MEDS: ONDANSETRON INJ 2 MG/ML INJ 2 ML 4 MG IV (03:25)
[2024-11-22] MEDS: SODIUM CHLORIDE 0.9% 1000 ML 1,000 ML 999 ML IV (03:41)
[2024-11-22] MEDS: IBUPROFEN TAB 400 MG TABLET PO (03:43)
[2024-11-22] MEDS: PIPER/TAZO INJ 4.5 GM in SODIUM CHLORIDE 0.9% (POP) 100 ML IV ×4 (03:46→23:20)
[2024-11-22 03:59] LABS: Lactate (Lactic Acid) 0.9 mMol/L (0.4-2.0)
[2024-11-22 04:01] LABS: Basophils % (Auto) 0 % (0-2.5); Eosinophils % (Auto) 0 % (0-10); Hematocrit 29.7 % (36.0-46.0); Hemoglobin 10.2 g/dL (12.0-16.0); Immature Granulocytes % (Auto) 1 % (0-0); Immature Granulocytes Auto 0.13 Thou/mm3 (0.00-0.00); Lymphocytes # (Auto) 0.9 Thou/mm3 (1.0-4.8); Lymphocytes % (Auto) 6 % (10-50); Mean Corpuscular HGB Conc 34.3 g/dl (31.0-37.0); Mean Corpuscular Hemoglobin 29.6 pg (25.0-35.0); Mean Corpuscular Volume 86 fL (80-100); Monocytes # (Auto) 1.3 Thou/mm3 (0.0-0.8); Monocytes % (Auto) 8 % (0-12); Neutrophils # (Auto) 14.5 Thou/mm3 (1.8-7.7); Neutrophils % (Auto) 86 % (37-80); Nucleated Red Blood Cell % 0 /100 WBC (0); Platelet Count 142 Thou/mm3 (140-440); RDW Standard Deviation 39.6 fL (36.4-46.3); Red Blood Count 3.45 Miln/mm3 (4.00-5.20); White Blood Count 16.9 Thou/mm3 (3.6-11.0)
[2024-11-22 04:41] LABS: Alanine Aminotransferase 18 U/L (10-49); Albumin, Serum 3.3 gm/dL (3.5-5.0); Albumin/Globulin Ratio 1.4 (1.2-2.2); Alkaline Phosphatase 91 U/L (46-116); Anion Gap 9 (7-16); Aspartate Amino Transferase 21 U/L (0-34); BUN/Creatinine Ratio 8 Ratio (12-20); Bilirubin,Total 0.6 mg/dL (0.3-1.2); Blood Urea Nitrogen 5 mg/dL (9-23); Calcium (Corrected) 8.6 mg/dL (8.5-10.1); Carbon Dioxide 20.4 mMol/L (20.0-31.0); Chloride 106 mMol/L (98-107); Creatinine (Component) 0.6 mg/dL (0.6-1.3); Estimated Creatinine Clearance 146.6 mL/min (>60); Globulin 2.4 gm/dL (2.3-3.5); Glucose 109 mg/dL (74-106); Magnesium 1.7 mg/dL (1.6-2.6); Osmolality,Calculated 268 (275-295); Sodium 135 mMol/L (136-145); Total Protein 5.7 gm/dL (5.7-8.2); eGFR > 60 See Note
[2024-11-22 04:43] LABS: Phosphorous 0.9 mg/dL (2.4-5.1)
[2024-11-22 04:44] LABS: Procalcitonin 3.36 ng/ml (0.0-0.49)
[2024-11-22] MEDS: NAPH,KPH MBDB 1 PACKET (1.5 GM) 2 PACKET PO (06:05)
--- NOTE | 2024-11-22 06:25 | PD.RESEVENT ---
Documentation for date of: 11/22/24 Event Note Event Note: A rapid response was called as the patient was tachycardic at 118bpm and temp of 102.3, patient BP was 115/67. On examination patient was flushed however she was responsive and not on acute distress, Sepsis alert was intiated and Repeat CBC, CMP, Lactic acid, Procal and repeat blood and urine culture was ordered, we broadened the coverage of the abx from Rocefin to Zosyn. Patient was also given tylenol, IVF and cooling measures. - Patient's plan and care discussed with my attending, Dr. Tonia Pope MD Internal Medicine PGY-2
[2024-11-22 06:38] LABS: Thyroid Stimulating Hormone 0.56 uIU/mL (0.55-4.78)
[2024-11-22] MEDS: Magnesium Sulfate 4 GM Ivpb 4 GM/50 ML BAG IV (08:35)
[2024-11-22] MEDS: SODIUM CHLORIDE 0.9% 1000 ML 1,000 ML 75 ML IV (08:40)
--- NOTE | 2024-11-22 14:11 | ESPR_ITS ---
<Statement entered by Harper Fontenot MD - 11/23/24 06:02> I discussed with and supervised the consultant intern physician who took care of this patient. I personally saw and examined the patient and discussed the assessment and plan with the entire medicine team, including my attending Dr. Lynch, I agree with most of the assessment and plan as documented below Harper Fontenot M.D. PGY-2 Documentation for date of: 11/22/24 Subjective Subjective Interval history: Overnight: Patient found to have fever leukocytosis, sepsis was called. Patient was given a liter bolus fluid, new cultures drawn, antibiotics broadened to Zosyn. Patient seen examined at bedside. Patient resting comfortably, eating well. Endorses fever with associated headache. Denies shortness of breath, chest pain, nausea, vomiting, dysuria. Follow-up cultures. IVF discontinued, patient on oral intake well. Continue current medical management. Exam Vital Signs Temp Pulse Resp BP Pulse Ox O2 Del Method 98.1 F 90 18 116/66 99 Room Air 11/22/24 12:00 11/22/24 12:50 11/22/24 12:50 11/22/24 12:00 11/22/24 12:00 11/22/24 12:00 Narrative Exam PE: Gen: Well-developed and well-nourished. HEENT: NCAT, PERRLA, EOMI, MMM, anicteric conjunctivae. CVS: normal S1 and S2. RRR. No M/R/G. Resp: CTA B/L. No rhonchi, rales, crackles or wheezing. Abd: soft, non-tender, non-distended. MSK: Good ROM in BUE & BLE. No edema or rash. Neuro: CN II-XII grossly intact. Strength 5/5 in BUE & BLE. Alert and oriented x3. Psych: appropriate mood and affect. Objective Labs 11/22/24 03:49 11/22/24 03:49 Labs: Laboratory Results - last 24 hr 11/22/24 03:49 WBC 16.9 H D RBC 3.45 L Hgb 10.2 L Hct 29.7 L MCV 86 MCH 29.6 MCHC 34.3 RDW Std Deviation 39.6 Plt Count 142 Neut % (Auto) 86 H Lymph % (Auto) 6 L [place] % (Auto) 8 Eos % (Auto) 0 Baso % (Auto) 0 Neut # (Auto) 14.5 H Lymph # (Auto) 0.9 L [place] # (Auto) 1.3 H Eos # (Auto) 0.0 Baso # (Auto) 0.0 Immature Gran # (Auto) 0.13 H Absolute Nucleated RBC 0.00 Immature Gran % 1 H Nucleated RBC % 0 Sodium 135 L Potassium 4.0 D Chloride 106 Carbon Dioxide 20.4 Anion Gap 9 BUN 5 L Creatinine 0.6 Estim Creat Clear Calc 146.6 eGFR > 60 BUN/Creatinine Ratio 8 L Glucose 109 H Calculated Osmolality 268 L Lactic Acid 0.9 Calcium 8.0 L Corrected Calcium 8.6 Phosphorus 0.9 L* Magnesium 1.7 Total Bilirubin 0.6 AST 21 ALT 18 Alkaline Phosphatase 91 D Total Protein 5.7 Albumin 3.3 L Globulin 2.4 Albumin/Globulin Ratio 1.4 Procalcitonin 3.36 H TSH 0.56 Quality Measures Quality Measures sepsis Current suspected stage: sepsis Possible source: genitourinary Blood cultures ordered: yes Antibiotic ordered: Yes and none Assessment & Plan Assessment Current Active Medications: Generic Name Dose Route Start Last Admin Trade Name Freq PRN Reason Stop Dose Admin Acetaminophen 650 mg 11/21/24 04:34 11/22/24 01:39 Acetaminophen 325 Mg Tablet PO 12/21/24 04:33 650 mg Q6H PRN Administration Fever >101.5 Hydromorphone HCl 0.25 mg 11/21/24 04:34 11/21/24 12:39 Hydromorphone Inj 2 Mg/Ml Vial IVP 11/26/24 04:33 0.25 mg Q2H PRN Administration Pain 7-10 Sodium Chloride 1,000 mls @ 75 mls/hr 11/21/24 04:45 11/22/24 08:40 Ns IV 12/21/24 04:44 75 mls/hr .[id number] JERSON Administration Piperacillin Sod/Tazobactam 100 mls @ 25 mls/hr 11/22/24 03:33 11/22/24 12:33 Sod 4.5 gm/ Sodium Chloride IV 11/29/24 03:32 25 mls/hr Q6HR JERSON Administration Ondansetron HCl 4 mg 11/21/24 04:34 11/22/24 03:25 Ondansetron Inj 2 Mg/Ml Inj 2 Ml IV 12/21/24 04:33 4 mg Q6H PRN Administration NAUSEA OR VOMITING Protocol Oxycodone/Acetaminophen 1 tab 11/21/24 04:34 11/21/24 20:14 Oxycodone/Apap 5/325 Tablet PO 11/26/24 04:33 1 tab Q6H PRN Administration PAIN SCALE 4-6 (Moderate Potassium Phos/Sodium Phos 1 packet 11/22/24 21:00 [place],[facility] 1 Packet (1.5 Gm) PO 12/22/24 20:59 BID JERSON Plan 23-year-old female patient with no past medical history presented to the ED due to history of fever and back pain for the past 2 days. 3 days before admission patient started to feel generalized body ache and weakness and back pain. However she started to improve later on during the day. Patient was admitted for management of sepsis secondary to pyelonephritis. #Sepsis secondary to pyelonephritis #Right sided pyelonephritis On presentation patient was febrile and severely tachycardic with heart rate of 147 and body temperature of 103.3, blood pressure was 94/56 she was given 2 L of IV fluids in the ED which improved her blood pressure to 112/56. Labs showed WBCs of 28.4, hemoglobin of 12.3 lactic acid was 2.1, procalcitonin 3.99, urinalysis showed WBC of 66. CT scan showed right-sided pyelonephritis, however the radiologist mentioned that acute appendicitis cannot be ruled out. Clinically on examination patient did not have any abdominal tenderness or rigidity, and no rebound tenderness, but did have right-sided CVA tenderness. Patient was started on Zosyn and doxycycline by the ED doctor. Patient reports significant subjective improvement in symptoms. Capsular was called overnight, new blood cultures drawn, antibiotics waiting to Zosyn, 1 L bolus fluids given. Patient tolerating p.o. intake well, IVF discontinued. -Ceftriaxone 1 g IV daily (started 11/21-11/22) -Zosyn 4.5 g IV every 6 hours (started 11/22) -Follow-up on the urine and blood cultures and sensitivity results -Acetaminophen for fever -Start cooling measures -Zofran IV every 6 hours as needed DVT ppx: Not indicated GI ppx: Not indicated Diet: Regular IV lines: PIV Code status: Full code Plan of care discussed with senior resident Dr. Fontenot PGY?[address] Lynch. Brodie Rao MD PGY?1 Attending Provider Attestation/Addendum I attest that I was physically present for the evaluation, physical examination, lab and imaging review of the patient with the residents. I discussed the case with the residents and agree with the findings and plans of care as documented above. Overnight, patient had a sepsis alert called due to feve of 102.8 ?F r. Her leukocytosis is improving. She stated that she had mild headache while she was having fever but denies any abdominal/back pain, nausea or vomiting. She also denies dysuria. Patient has been having good oral intake, we will discontinue her IV hydration. Her antibiotics were switched from ceftriaxone to Zosyn overnight. Urine culture grew gram-negative rods. Awaiting final blood culture and urinary culture results. Yvette Lynch MD
--- NOTE | 2024-11-22 15:28 | PC.SS ---
Patient is alert/oriented. Patient was able to verify demographics. Patient is independent with ADLs. Patient was admitted for sepsis UTI. Patient's mother was at bedside. Patient resides with mother. Patient states she follows at [facility] for her primary care. Last appt. was in October. Patient is on i.v. antibiotics. D/c plan is to return home. Patient verbalized her mother is the alt medical decision maker.
--- NOTE | 2024-11-22 20:00 | PC.NURSE ---
T=101.6- tylenol po and Cooling measures applied.
[2024-11-22] MEDS: NAPH,KPH MBDB 1 PACKET (1.5 GM) PO (21:45)
[2024-11-23] VITALS (10 sets, daily range): BP systolic 110–121; BP diastolic 63–81; PULSE 86–104; RESP 15–95; TEMP 36.2–37.9; O2SAT 95–100
--- NOTE | 2024-11-23 05:08 | PC.NURSE ---
T=100.2- Cooling measures done.
[2024-11-23] MEDS: PIPER/TAZO INJ 4.5 GM in SODIUM CHLORIDE 0.9% (POP) 100 ML IV (05:25)
[2024-11-23 06:14] LABS: Basophils % (Auto) 0 % (0-2.5); Eosinophils % (Auto) 0 % (0-10); Hemoglobin 9.9 g/dL (12.0-16.0); Immature Granulocytes % (Auto) 0 % (0-0); Immature Granulocytes Auto 0.03 Thou/mm3 (0.00-0.00); Lymphocytes % (Auto) 11 % (10-50); Mean Corpuscular HGB Conc 34.1 g/dl (31.0-37.0); Mean Corpuscular Hemoglobin 29.4 pg (25.0-35.0); Mean Corpuscular Volume 86 fL (80-100); Monocytes # (Auto) 0.8 Thou/mm3 (0.0-0.8); Monocytes % (Auto) 9 % (0-12); Neutrophils # (Auto) 6.7 Thou/mm3 (1.8-7.7); Neutrophils % (Auto) 79 % (37-80); Nucleated Red Blood Cell % 0 /100 WBC (0); Platelet Count 149 Thou/mm3 (140-440); RDW Standard Deviation 39.9 fL (36.4-46.3); Red Blood Count 3.37 Miln/mm3 (4.00-5.20); White Blood Count 8.5 Thou/mm3 (3.6-11.0)
[2024-11-23 06:56] LABS: Alanine Aminotransferase 25 U/L (10-49); Albumin, Serum 3.4 gm/dL (3.5-5.0); Albumin/Globulin Ratio 1.5 (1.2-2.2); Alkaline Phosphatase 93 U/L (46-116); Anion Gap 9 (7-16); Aspartate Amino Transferase 23 U/L (0-34); BUN/Creatinine Ratio 8 Ratio (12-20); Bilirubin,Total 0.4 mg/dL (0.3-1.2); Blood Urea Nitrogen < 5 mg/dL (9-23); Calcium 8.2 mg/dL (8.3-10.6); Calcium (Corrected) 8.7 mg/dL (8.5-10.1); Carbon Dioxide 23.3 mMol/L (20.0-31.0); Chloride 107 mMol/L (98-107); Creatinine (Component) 0.6 mg/dL (0.6-1.3); Estimated Creatinine Clearance 146.6 mL/min (>60); Globulin 2.3 gm/dL (2.3-3.5); Glucose 103 mg/dL (74-106); Magnesium 1.9 mg/dL (1.6-2.6); Osmolality,Calculated 274 (275-295); Phosphorous 2.1 mg/dL (2.4-5.1); Potassium 3.8 mMol/L (3.4-5.1); Sodium 139 mMol/L (136-145); Total Protein 5.7 gm/dL (5.7-8.2); eGFR > 60 See Note
[2024-11-23] MEDS: ACETAMINOPHEN 325 MG TABLET 650 MG PO ×2 (08:04→17:40)
[2024-11-23] MEDS: NAPH,KPH MBDB 1 PACKET (1.5 GM) PO ×2 (08:04→23:26)
[2024-11-23] MEDS: cefTRIAXone/D5w 1gm IV premix 50 ML IV (11:03)
--- NOTE | 2024-11-23 13:39 | ESPR_ITS ---
<Statement entered by [place] Encinas MD - 11/23/24 19:23> I discussed with and supervised the software engineer intern physician who took care of this patient. I personally saw and examined the patient and discussed the assessment and plan with the entire medicine team, including my attending Dr. Higuera, I agree with the assessment and plan as documented below Patient seen and examined at bedside today. Labs and imaging reviewed. No overnight events This morning at the bedside patient stated that she is feeling well denied any acute complaints at this moment denied nausea, vomiting, or CVA tenderness. Due to patient has overnight a low degree fever we will continue IV antibiotics for another 24 hours, pending blood and urine cultures. [place] Encinas MD PGY-3 Disclaimer: Despite multiple revisions, due to the dictation software being used, the document bellow may not be free of grammatical errors including phonetic/typographic errors. However, this does not deter from our commitment to providing health care in the patient's best interest in mind. <Statement entered by Harper Fontenot MD - 11/23/24 18:39> Patient seen and examined at bedside. No acute overnight events reported except for spiking a fever last night. Will wait for final cultures and temperatures from to oral antibiotics tomorrow. Anticipate discharge within 24 hours. Patient denies any complaints at this time, no abdominal pain reported. I discussed with and supervised the software engineer intern physician who took care of this patient. I personally saw and examined the patient and discussed the assessment and plan with the entire medicine team, including my attending Dr. Higuera, I agree with most of the assessment and plan as documented below Harper Fontenot M.D. PGY-2 Disclaimer: Despite multiple revisions, due to the dictation software being used, the document bellow may not be free of grammatical errors including phonetic/typographic errors. However, this does not deter from our commitment to providing health care in the patient's best interest in mind. Documentation for date of: 11/23/24 Subjective Subjective Interval history: No overnight events. Patient seen and examined at bedside, resting comfortably. Patient endorses fevers with associated headache, well-controlled with p.o. medication. Patient denies shortness of breath, nausea, vomiting, chest pain, dysuria. Narrow antibiotics based on urine culture results. Will keep 1 more day pending repeat blood culture results, continue IV antibiotics due to patient's continued fevers.. Exam Vital Signs Temp Pulse Resp BP Pulse Ox O2 Del Method 97.2 F 104 H 16 120/67 100 Room Air 11/23/24 12:00 11/23/24 12:00 11/23/24 12:00 11/23/24 12:00 11/23/24 12:00 11/23/24 12:00 Narrative Exam PE: Gen: Well-developed and well-nourished. HEENT: NCAT, PERRLA, EOMI, MMM, anicteric conjunctivae. CVS: normal S1 and S2. RRR. No M/R/G. Resp: CTA B/L. No rhonchi, rales, crackles or wheezing. Abd: soft, non-tender, non-distended. MSK: Good ROM in BUE & BLE. No edema or rash. Neuro: CN II-XII grossly intact. Strength 5/5 in BUE & BLE. Alert and oriented x3. Psych: appropriate mood and affect. Objective Labs 11/24/24 04:28 11/24/24 04:28 Labs: Laboratory Results - last 24 hr 11/23/24 05:49 WBC 8.5 D RBC 3.37 L Hgb 9.9 L Hct 29.0 L MCV 86 MCH 29.4 MCHC 34.1 RDW Std Deviation 39.9 Plt Count 149 Neut % (Auto) 79 Lymph % (Auto) 11 [place] % (Auto) 9 Eos % (Auto) 0 Baso % (Auto) 0 Neut # (Auto) 6.7 Lymph # (Auto) 1.0 [place] # (Auto) 0.8 Eos # (Auto) 0.0 Baso # (Auto) 0.0 Immature Gran # (Auto) 0.03 H Absolute Nucleated RBC 0.00 Immature Gran % 0 Nucleated RBC % 0 Sodium 139 Potassium 3.8 Chloride 107 Carbon Dioxide 23.3 Anion Gap 9 BUN < 5 L Creatinine 0.6 Estim Creat Clear Calc 146.6 eGFR > 60 BUN/Creatinine Ratio 8 L Glucose 103 Calculated Osmolality 274 L Calcium 8.2 L Corrected Calcium 8.7 Phosphorus 2.1 L Magnesium 1.9 Total Bilirubin 0.4 AST 23 ALT 25 Alkaline Phosphatase 93 Total Protein 5.7 Albumin 3.4 L Globulin 2.3 Albumin/Globulin Ratio 1.5 Quality Measures Quality Measures sepsis Current suspected stage: sepsis (Resolving) Possible source: genitourinary Blood cultures ordered: yes Antibiotic ordered: Yes and none Assessment & Plan Assessment Current Active Medications: Generic Name Dose Route Start Last Admin Trade Name Freq PRN Reason Stop Dose Admin Acetaminophen 650 mg 11/21/24 04:34 11/23/24 08:04 Acetaminophen 325 Mg Tablet PO 12/21/24 04:33 650 mg Q6H PRN Administration Fever >101.5 Ceftriaxone Sodium/Dextrose 50 mls @ 100 mls/hr 11/23/24 10:30 11/23/24 11:03 Rocephin/D5w 1gm Iv Premix IV 11/30/24 10:29 100 mls/hr QDAY JERSON Administration Ibuprofen 600 mg 11/23/24 10:31 Ibuprofen Tab 600 Mg Tablet PO 12/23/24 10:30 Q6HR PRN PAIN 1-3 OR FEVER > 101.5 Protocol Ondansetron HCl 4 mg 11/21/24 04:34 11/22/24 03:25 Ondansetron Inj 2 Mg/Ml Inj 2 Ml IV 12/21/24 04:33 4 mg Q6H PRN Administration NAUSEA OR VOMITING Protocol Potassium Phos/Sodium Phos 1 packet 11/22/24 21:00 11/23/24 08:04 [facility] 1 Packet (1.5 Gm) PO 12/22/24 20:59 1 packet BID JERSON Administration Plan 23-year-old female patient with no past medical history presented to the ED due to history of fever and back pain for the past 2 days. 3 days before admission patient started to feel generalized body ache and weakness and back pain. However she started to improve later on during the day. Patient was admitted for management of sepsis secondary to pyelonephritis. #Sepsis (resolving) secondary to pyelonephritis #Right sided pyelonephritis On presentation patient was febrile and severely tachycardic with heart rate of 147 and body temperature of 103.3, blood pressure was 94/56 she was given 2 L of IV fluids in the ED which improved her blood pressure to 112/56. Labs showed WBCs of 28.4, hemoglobin of 12.3 lactic acid was 2.1, procalcitonin 3.99, urinalysis showed WBC of 66. CT scan showed right-sided pyelonephritis, however the radiologist mentioned that acute appendicitis cannot be ruled out. Clinically on examination patient did not have any abdominal tenderness or rigidity, and no rebound tenderness, but did have right-sided CVA tenderness. Patient was started on Zosyn and doxycycline by the ED doctor. Patient reports significant subjective improvement in symptoms. Capsular was called overnight, new blood cultures drawn, antibiotics waiting to Zosyn, 1 L bolus fluids given. Patient tolerating p.o. intake well, IVF discontinued. # Blood cultures negative, repeat blood cultures pending. Urine culture showed pansensitive E. coli, antibiotics narrowed. Patient continues to have fever. -Ceftriaxone 1 g IV daily (started 11/21-11/22, 11/23?) -Zosyn 4.5 g IV every 6 hours (started 11/22-) -Follow-up on blood cultures and sensitivity results -Acetaminophen and ibuprofen for fever -Start cooling measures -Zofran IV every 6 hours as needed DVT ppx: Not indicated GI ppx: Not indicated Diet: Regular IV lines: PIV Code status: Full code Plan of care discussed with senior residents Dr. Encinas PGY?[address] Fontenot PGY?2, and attending Dr. Higuera. Brodie Rao MD PGY?1 Attending Provider Attestation/Addendum I have examined the patient, reviewed labs and imaging findings, discussed the case with the resident(s), and reviewed entered orders. I agree with the plan of care as outlined in this note, with these additional summaries/recommendations: Patient seen at bedside. Tmax over last 24 hours 101.6 Fahrenheit. Low-grade fever persists this morning with temperature 100.2 ?F. Original urine culture on 11/21/2024 grew E. coli. Patient had rapid response yesterday and additional sepsis alert was called and cultures were retaken. Currently repeat blood cultures show no growth at 24 hours and repeat urine culture pending. Nonetheless based off previous urine cultures we will transition to IV Rocephin for pyelonephritis and monitor for any recurrence of fevers. If patient continues to clinically improve then anticipate discharge in the next 24 to 48 hours. Repeat hematology and chemistry panel in AM. Dr. Kalen MD
[2024-11-24] VITALS: BP 127/76; PULSE 78; RESP 18; TEMP 36.8; O2SAT 100
[2024-11-24 04:00] VITALS: BP 119/60; PULSE 107; RESP 18; TEMP 37.2; O2SAT 98
[2024-11-24 06:11] LABS: Basophils % (Auto) 0 % (0-2.5); Eosinophils % (Auto) 0 % (0-10); Hematocrit 30.9 % (36.0-46.0); Hemoglobin 10.6 g/dL (12.0-16.0); Immature Granulocytes % (Auto) 1 % (0-0); Immature Granulocytes Auto 0.03 Thou/mm3 (0.00-0.00); Lymphocytes # (Auto) 1.4 Thou/mm3 (1.0-4.8); Lymphocytes % (Auto) 21 % (10-50); Mean Corpuscular HGB Conc 34.3 g/dl (31.0-37.0); Mean Corpuscular Hemoglobin 29.2 pg (25.0-35.0); Mean Corpuscular Volume 85 fL (80-100); Monocytes # (Auto) 0.7 Thou/mm3 (0.0-0.8); Monocytes % (Auto) 11 % (0-12); Neutrophils # (Auto) 4.3 Thou/mm3 (1.8-7.7); Neutrophils % (Auto) 67 % (37-80); Nucleated Red Blood Cell % 0 /100 WBC (0); Platelet Count 202 Thou/mm3 (140-440); Red Blood Count 3.63 Miln/mm3 (4.00-5.20); White Blood Count 6.5 Thou/mm3 (3.6-11.0)
[2024-11-24 06:46] LABS: Alanine Aminotransferase 20 U/L (10-49); Albumin, Serum 3.6 gm/dL (3.5-5.0); Albumin/Globulin Ratio 1.4 (1.2-2.2); Alkaline Phosphatase 91 U/L (46-116); Anion Gap 10 (7-16); Aspartate Amino Transferase 18 U/L (0-34); BUN/Creatinine Ratio 10 Ratio (12-20); Bilirubin,Total 0.3 mg/dL (0.3-1.2); Blood Urea Nitrogen < 5 mg/dL (9-23); Calcium 8.5 mg/dL (8.3-10.6); Calcium (Corrected) 8.8 mg/dL (8.5-10.1); Carbon Dioxide 23.9 mMol/L (20.0-31.0); Chloride 106 mMol/L (98-107); Creatinine (Component) 0.5 mg/dL (0.6-1.3); Estimated Creatinine Clearance 175.9 mL/min (>60); Globulin 2.5 gm/dL (2.3-3.5); Glucose 98 mg/dL (74-106); Magnesium 1.9 mg/dL (1.6-2.6); Osmolality,Calculated 276 (275-295); Phosphorous 3.4 mg/dL (2.4-5.1); Potassium 3.8 mMol/L (3.4-5.1); Sodium 140 mMol/L (136-145); Total Protein 6.1 gm/dL (5.7-8.2); eGFR > 60 See Note
[2024-11-24 08:00] VITALS: BP 116/75; PULSE 97; RESP 16; TEMP 36.9; O2SAT 97
[2024-11-24] MEDS: cefTRIAXone/D5w 1gm IV premix 50 ML IV (08:30)
[2024-11-24] MEDS: NAPH,KPH MBDB 1 PACKET (1.5 GM) PO (08:31)
--- NOTE | 2024-11-24 10:07 | PC.NURSE ---
Discharge orders in, pending care plan goals per Dr Elmore
[2024-11-24 11:00] VITALS: BP 135/85; PULSE 106; RESP 18; TEMP 36.7; O2SAT 99
--- NOTE | 2024-11-24 14:40 | ESDS_ITS ---
<Statement entered by Harper Fontenot MD - 11/24/24 15:21> I discussed with and supervised the event marketing intern physician who took care of this patient. I personally saw and examined the patient and discussed the assessment and plan with the entire medicine team, including my attending , I agree with most of the assessment and plan as documented below Harper Fontenot M.D. PGY-2 Planned Discharge Date 11/24/24 DS: Providers Provider Date of admission: 11/21/24 04:34 Primary care physician: Physician No Primary/Family Admitting Provider: Talon Randall MD Attending Provider on Admission: Nabil Higuera MD Attending Provider on DC: Nabil Higuera MD Discharging Provider: Brodie Rao MD DS: Diagnosis Problem List Completed Was Problem List Reviewed/Reconciled?: Yes Hospital Course Hospital Course Hospital course: 23-year-old female patient with no past medical history presented to the ED on 11/21/2024 due to history of fever and back pain times 2 days, admitted for se psis secondary to acute pyelonephritis. During admission patient was treated with IV ceftriaxone. Patient had a sepsis alert called, antibiotics temporarily broadened to Zosyn, before reduced back to ceftriaxone based off of cultures. Urine culture positive for pansensitive E. coli, blood cultures were negative. Patient was septic on admission based on clear source of infection, lactic acidosis, fever with leukocytosis. Patient showed significant improvement with IV antibiotics. Patient medically stable and cleared for discharge. Discharge plan: Treatment started on the following medication: -Ciprofloxacin 5 mg twice a day for the next 4 days Please continue all medications as previously prescribed Please see your Primary Care Provider within 1-2 weeks Return to the Emergency Department if you develop new or worsening symptoms Diagnoses: #Sepsis (resolved) secondary to pyelonephritis #Right sided pyelonephritis Plan of care discussed with senior resident Dr. Fontenot PGY?[address] Higuera. Brodie Rao MD PGY?1 Status at Discharge Cognitive/behavioral status at discharge: stable Functional status at discharge: independent ambulation Overall status at discharge: patient is progressing back to baseline Time Spent with Patient Time attestation: Total time spent providing and/or coordinating discharge services: 35 Exam Vital Signs Temp Pulse Resp BP Pulse Ox O2 Del Method 98.1 F 106 H 18 135/85 H 99 Room Air 11/24/24 11:00 11/24/24 11:00 11/24/24 11:00 11/24/24 11:00 11/24/24 11:00 11/24/24 11:00 Narrative Exam PE: Gen: Well-developed and well-nourished. HEENT: NCAT, PERRLA, EOMI, MMM, anicteric conjunctivae. CVS: normal S1 and S2. RRR. No M/R/G. Resp: CTA B/L. No rhonchi, rales, crackles or wheezing. Abd: soft, non-tender, non-distended. MSK: Good ROM in BUE & BLE. No edema or rash. Neuro: CN II-XII grossly intact. Strength 5/5 in BUE & BLE. Alert and oriented x3. Psych: appropriate mood and affect. Discharge Plan Plan Patient Disposition: HOME (Self Care) Patient condition on transfer: Stable Care Plan Goals: Treatment started on the following medication: -Ciprofloxacin 5 mg twice a day for the next 4 days Please continue all medications as previously prescribed Please see your Primary Care Provider within 1-2 weeks Return to the Emergency Department if you develop new or worsening symptoms Prescriptions/Referrals Prescriptions/Med Rec: New ciprofloxacin HCl [Cipro] 500 mg tablet 500 mg PO BID 4 Days Qty: 8 0RF Continued norelgestromin-ethin.estradiol [Xulane] 150-35 mcg/24 hr patch weekly TOPICAL Referrals: No Primary/Family,Physician [Primary Care Provider] - Patient/Caregiver Discharge Instructions Discharge Activity: resume usual activities Education Materials: Understanding Post Sepsis Syndrome, Anatomy of the Female Urinary Tract, Urinary Tract Infections in Women, Sepsis, Understanding Sepsis Print Language: Urdu Stand Alone Forms: [employer] Award Info., Patient Portal Info Letter Discharge Order Discharge Orders: Discharge (Routine); Ordered 11/24/24 Ordered By: Brodie Rao Quality Discharge Quality Measures VTE prophylaxis Attestestation MD Attestation I have examined the patient, reviewed labs and imaging findings, discussed the case with the resident(s), and reviewed entered orders. I agree with the plan of care as outlined in this note. Dr. Kalen MD
== END 2024-11-24 11:22 | disposition home or self-care (01) | DRG 720 ==
LOC: SERX 11-21 04:50 → SERHOLD 11-21 04:52 → S3NX 11-21 13:13
PROVIDERS: Physician Assistant; Student in an Organized Health Care Education/Training Program; Admitting Provider Internal Medicine; Emergency Provider Emergency Medicine; Visit Provider Student in an Organized Health Care Education/Training Program
DX: A41.51 Sepsis due to Escherichia coli [E. coli] (principal); N10 Acute pyelonephritis; K35.80 Unspecified acute appendicitis; Z87.440 Personal history of urinary (tract) infections
CPT/HCPCS: 36415; 71045; 74176; 80053; 80307; 81001; 81025; 83605; 83615; 83690; 83735; 83880; 84100; 84145; 84443; 85025; 85610; 85730; 87040; 87077; 87086; 87186; 87400; 87811; 93005; 96361; 96365; 96367; 96368; 96375; 99291; J0131; J0696; J1171; J1885; J2405; J2543; J3475; J3490; J7030; J7040; J7050; A9270